=== PATIENT | female | born 2000 | race Caucasian/White ===

== ENCOUNTER 2021-11-19 22:36 | Emergency (ER) | payer MEDICAID ==
[~2021-11-19] VITALS: Ht 162.6 cm; Wt 87.0 kg
[2021-11-19 22:41] VITALS: BP 127/51
[2021-11-20] MEDS ORDERED: FLUT1DIS3 INH (06:41)
== END 2021-11-20 08:04 | disposition home or self-care (01) ==
LOC: ER 22:36
DX: R05.3 Chronic cough (principal); R07.89 Other chest pain
CPT/HCPCS: 81025; 93005; 99283